=== PATIENT | female | born 1970 | race Caucasian/White ===

== ENCOUNTER → 2022-02-10 02:45 | Outpatient (CLI) | payer SELFPAY | PROVIDERS: PCP Nurse Practitioner Family; Visit Provider Nurse Practitioner Family ==

== ENCOUNTER 2023-03-28 09:37 | Outpatient (REF) | payer MEDICAID, SELFPAY ==
[2023-03-28 19:09] LABS: Abs Immature Grans 0.01 10^3/uL (0.0-0.06); Absolute Basophil Count 0.07 10^3/uL (0.0-0.2); Absolute Eosinophil Count 0.17 10^3/uL (0.0-0.7); Absolute Monocyte Count 0.32 10^3/uL (0.1-0.8); Absolute Neutrophil Count 2.57 10^3/uL (1.2-6.7); Basophils % 1.4; Eosinophils % 3.5; HCT 42.6 % (36.0-46.0); Immature Grans % 0.2; Lymphocytes % 35.1; MCH 30.5 pg (27.0-33.0); MCHC 32.9 % (32.0-36.0); MCV 93 fL (80-95); MPV 10.3 fL (8.0-11.0); Monocytes % 6.6; Neutrophils % 53.2; Platelet Count 288 10^3/uL (130-400); RBC 4.59 10^6/uL (3.93-5.22); RDW 12.5 % (11.7-14.6); RDW-SD 42.6 fL; WBC 4.84 10^3/uL (4.4-10.8)
[2023-03-28 19:19] LABS: Iron 139 ug/dL (50-170); Total Iron Binding Capacity 381 ug/dL (250-450); Transferrin Sat 36 % (15-50)
[2023-03-28 20:38] LABS: ALT 28 U/L (14-59); AST 19 U/L (15-37); Albumin 4.1 g/dL (3.4-5.0); Alkaline Phosphatase 81 U/L (46-116); BUN 20 mg/dL (7-18); Bilirubin, Total 0.4 mg/dL (0.2-1.0); Chloride 106 mmol/L (98-107); Estimated GFR 68.63 (mL/min/1.73m2); Ferritin 55 ng/mL (8-252); Glucose 79 mg/dL (74-106); Magnesium 2.3 mg/dL (1.8-2.4); Sodium 140 mmol/L (136-145); TSH (W/Ref FT4) 0.77 uIU/mL (0.36-3.74); Total Protein 7.9 g/dL (6.4-8.2); Vitamin B12 309 pg/mL (193-986)
[2023-03-28 20:39] LABS: Troponin I < 50 ng/L (<or=60)
[2023-03-31 12:33] LABS: Lamotrigine 0.3 mcg/mL (3.0-15.0)
== END 2023-03-28 09:38 | disposition home or self-care (01) ==
LOC: NCHCN 09:37
PROVIDERS: PCP Nurse Practitioner Family; Visit Provider Physician Assistant
DX: I10 Essential (primary) hypertension (principal); G40.909 Epilepsy, unspecified, not intractable, without status epilepticus; I25.10 Atherosclerotic heart disease of native coronary artery without angina pectoris; R00.2 Palpitations; E78.5 Hyperlipidemia, unspecified
CPT/HCPCS: 80053; 80175; 82607; 82728; 83540; 83550; 83735; 84443; 84484; 85025